=== PATIENT | male | born 1950 | race Caucasian/White ===

== ENCOUNTER 2022-11-27 19:19 | Emergency (ER) | payer BC, MEDICARE ==
[2022-11-27] MEDS ORDERED: Lidocaine 2% 5 ML SDV INJECT ONE (19:26)
== END 2022-11-27 20:11 | disposition home or self-care (01) ==
LOC: KA.ED 19:19 → MERGE 19:19 → KA.ED 20:11
DX: S61.252A Open bite of right middle finger without damage to nail, initial encounter (principal); S61.212A Laceration without foreign body of right middle finger without damage to nail, initial encounter; S51.812A Laceration without foreign body of left forearm, initial encounter; S61.452A Open bite of left hand, initial encounter; W54.0XXA Bitten by dog, initial encounter; Z88.0 Allergy status to penicillin; Z88.5 Allergy status to narcotic agent; Z88.8 Allergy status to other drugs, medicaments and biological substances
CPT/HCPCS: 12001; 99283; J3490